=== PATIENT | female | born 1940 | race Caucasian/White ===

== ENCOUNTER 2017-08-04 06:05 | Day surgery (SDC) | payer MEDICARE ==
[~2017-08-04 06:05] MED LIST: AMLO2.5T PO; ASPI81 PO; ATOR40TA28 PO; BENA20 PO; CARV6 PO; CYAN500 PO; DIGO125T PO; FOLI1 PO; GABA-531 PO; MEMA21CA PO; VILA20TA PO; VITAD1000 PO
[2017-08-04] MEDS ORDERED: POVIDONE-IODINE 10% 15 ML SOLUTION UD TP ONE (06:06)
[2017-08-04] MEDS ORDERED: LIDOCAINE HCL/PF 1% 2 ML VIAL IM ONE (06:06)
[2017-08-04] MEDS ORDERED: EPINEPHrine 1:1,000 [1 MG/ML] AMP SQ ONE (06:06)
[2017-08-04] MEDS ORDERED: FentaNYL CITRATE-PF 100 MCG/2 ML VIAL IVP ONE (06:06)
[2017-08-04] MEDS ORDERED: HYALURONATE SOD/CHONDROITIN SOD 0.5 ML VIAL IO ONE (06:06)
[2017-08-04] MEDS ORDERED: LIDOCAINE HCL/PF 2% 5 ML VIAL IM ONE (06:06)
[2017-08-04] MEDS ORDERED: MIDAZOLAM HCL 2 MG/2 ML VIAL IVP ONE (06:06)
[2017-08-04] MEDS ORDERED: HYALURONATE SODIUM 12 MG/ML 0.8 ML SYRINGE IO ONE (06:06)
[2017-08-04] MEDS ORDERED: BRIMONIDINE TARTRATE 0.15% 5 ML OPHTHALMIC SOLUTION OS ONE (06:06)
[2017-08-04] MEDS ORDERED: TETRACAINE HCL VISCOUS 0.5% 5 ML OPHTHALMIC SOLUTION OS ONE (06:06)
[2017-08-04] MEDS ORDERED: DICLOFENAC SODIUM 0.1% 2.5 ML OPHTHALMIC SOLUTION ONE (06:16)
[2017-08-04] MEDS ORDERED: MOXIFLOXACIN HCL 0.5% 3 ML OPHTHALMIC SOLUTION ONE (06:16)
[2017-08-04] MEDS ORDERED: PHENYLEPHRINE HCL 2.5% 2 ML OPHTHALMIC SOLUTION ONE (06:16)
[2017-08-04] MEDS ORDERED: TETRACAINE HCL/PF 0.5% 4 ML OPHTHALMIC SOLUTION ONE (06:16)
[2017-08-04] MEDS ORDERED: CYCLOPENTOLATE HCL 2% 2 ML OPHTHALMIC SOLUTION ONE (06:16)
[2017-08-04] MEDS ORDERED: RINGERS SOLUTION,LACTATED 500 ML IV ONE ×2 (06:17→06:30)
[2017-08-04] MEDS: CYCLOPENTOLATE HCL 2% 2 ML OPHTHALMIC SOLUTION OS SCH ×3 (07:31→08:07)
[2017-08-04] MEDS: DICLOFENAC SODIUM 0.1% 2.5 ML OPHTHALMIC SOLUTION OS SCH ×3 (07:31→08:07)
[2017-08-04] MEDS: MOXIFLOXACIN HCL 0.5% 3 ML OPHTHALMIC SOLUTION OS SCH ×3 (07:31→08:07)
[2017-08-04] MEDS: PHENYLEPHRINE HCL 2.5% 2 ML OPHTHALMIC SOLUTION OS SCH ×3 (07:32→08:07)
[2017-08-04] MEDS ORDERED: AcetaZOLAMIDE 250 MG TABLET ONE (08:55)
[2017-08-04] MEDS ORDERED: AcetaZOLAMIDE 250 MG TABLET PO ONE (09:00)
[2017-08-04] MEDS ORDERED: TETRACAINE HCL/PF 0.5% 4 ML OPHTHALMIC SOLUTION OS ONE (09:00)
[2017-08-04] MEDS ORDERED: ACETAMINOPHEN/CODEINE 300-30 MG TABLET PO PRN (09:00)
== END 2017-08-04 09:40 | disposition home or self-care (01) ==
LOC: SURGERY 06:05
PROVIDERS: ATTEND Ophthalmology
DX: H25.12 Age-related nuclear cataract, left eye (principal); I25.10 Atherosclerotic heart disease of native coronary artery without angina pectoris; G89.29 Other chronic pain; F03.90 Unspecified dementia, unspecified severity, without behavioral disturbance, psychotic disturbance, mood disturbance, and anxiety; E78.00 Pure hypercholesterolemia, unspecified; F32.9 Major depressive disorder, single episode, unspecified; I11.0 Hypertensive heart disease with heart failure; I50.30 Unspecified diastolic (congestive) heart failure; I48.91 Unspecified atrial fibrillation; R41.3 Other amnesia; F10.21 Alcohol dependence, in remission; Z91.040 Latex allergy status; Z95.0 Presence of cardiac pacemaker; Z88.8 Allergy status to other drugs, medicaments and biological substances; Z79.899 Other long term (current) drug therapy; Z79.82 Long term (current) use of aspirin; Z88.1 Allergy status to other antibiotic agents; Z87.891 Personal history of nicotine dependence; Z98.890 Other specified postprocedural states; Z85.3 Personal history of malignant neoplasm of breast; Z90.12 Acquired absence of left breast and nipple
CPT/HCPCS: 66984; 93005; C1780; J0171; J2250; J3010; J3490 ×3; J7120

== ENCOUNTER 2021-09-10 15:35 | Inpatient (IN) | payer MEDICARE, MEDICAID ==
[~2021-09-10] VITALS: Ht 170.2 cm; Wt 48.0 kg
[~2021-09-10 15:35] MED LIST changes: -AMLO2.5T PO; +AMLO2.5T96 PO; +ASPI-1450 PO; -ASPI81 PO; -BENA20 PO; +BENA20TA83 PO; +CHOL100018 PO; -CYAN500 PO; +CYAN500T9 PO; -DIGO125T PO; +DIGO125T84 PO; +FOLI-130 PO; -FOLI1 PO; +GABA-1181 PO; -GABA-531 PO; -VITAD1000 PO
[2021-09-10] MEDS ORDERED: ACETAMINOPHEN 325 MG TABLET PO PRN (18:30)
[2021-09-10] MEDS ORDERED: LORazepam 2 MG/ML VIAL IVP ONE (18:30)
[2021-09-10] MEDS ORDERED: ONDANSETRON HCL 4 MG/2 ML VIAL IVP PRN (18:30)
[2021-09-10 19:17] LABS: BASOPHILS % (AUTO) 0.5 % (0.0-2.0); EOSINOPHILS % (AUTO) 1.5 % (1.0-6.0); HEMATOCRIT 31.7 % (36-46); HEMOGLOBIN 10.5 g/dL (12.0-16.0); LYMPHOCYTES # (AUTO) 0.7 K/uL (1.0-4.8); LYMPHOCYTES % (AUTO) 16.5 % (22.0-44.0); MEAN CORPUSCULAR HEMOGLOBIN 29.2 pg (26.0-34.0); MEAN CORPUSCULAR HGB CONC 33.2 G/dL (31.0-37.0); MEAN CORPUSCULAR VOLUME 88 fL (80-100); MONOCYTES # (AUTO) 0.4 K/uL (0.1-1.0); MONOCYTES % (AUTO) 8.7 % (2.0-9.0); NEUTROPHILS # (AUTO) 3.1 K/uL (1.8-7.7); NEUTROPHILS % (AUTO) 72.8 % (40.0-70.0); PLATELET COUNT (AUTO) 219 K/uL (150-450); RED BLOOD CELL COUNT(AUTO) 3.61 MIL/uL (4.00-5.20); RED CELL DISTRIBUTION WIDTH 21.2 % (11.5-14.5)
[2021-09-10 19:29] LABS: ANION GAP 5 mmol/L (8-16); CALCIUM, TOTAL 8.5 mg/dL (8.8-10.5); CARBON DIOXIDE 32 mmol/L (22-29); CHLORIDE 105 mmol/L (98-107); CREATININE 0.72 mg/dL (0.60-1.30); GLUCOSE,RANDOM 85 mg/dL (70-110); SODIUM SERUM 142 mmol/L (136-145); UREA NITROGEN, BLOOD 17 mg/dL (7-18)
[2021-09-10 19:31] LABS: GLOMERULAR FILTR. RATE CALC > 60 mL/min (>60)
[2021-09-10 19:34] LABS: ALANINE AMINOTRANSFERASE 33 U/L (12-78); ALBUMIN 2.3 g/dL (3.4-5.0); ALKALINE PHOSPHATASE 122 U/L (46-116); ASPARTATE AMINOTRANSFERASE 32 U/L (15-37); BILIRUBIN,TOTAL 0.6 mg/dL (0.1-1.0); TOTAL PROTEIN, SERUM 5.8 g/dL (6.4-8.2)
[2021-09-10 19:35] LABS: INR 1.1 (0.9-1.1); PROTHROMBIN TIME 11.6 SEC (9.4-11.6)
[2021-09-10 20:18] LABS: COVID AG,FIA SOURCE NASOPHARYNGEAL
[2021-09-10] MEDS: DOCUSATE SODIUM 100 MG CAPSULE PO SCH (22:01)
[2021-09-11] MEDS: HEPARIN SODIUM,PORCINE 5,000 UNITS/ML VIAL SQ SCH ×3 (00:08→23:32)
[2021-09-11] MEDS: DOCUSATE SODIUM 100 MG CAPSULE PO SCH ×2 (08:25→20:43)
[2021-09-11] MEDS: PIPERACILLIN/TAZO 3.375 GM/D5W 50 ML IV SCH ×2 (08:26→20:43)
[2021-09-11] MEDS: MORPHINE SULFATE 2 MG/ML SYRINGE IVP PRN ×2 (11:06→22:41)
[2021-09-11] MEDS: LORazepam 2 MG/ML VIAL IVP PRN (12:43)
[2021-09-11 17:22] VITALS: BP 108/65
[2021-09-11 19:00] VITALS: BP 100/51
[2021-09-12] MEDS: PIPERACILLIN/TAZO 3.375 GM/D5W 50 ML IV SCH ×4 (02:35→20:02)
[2021-09-12 04:10] VITALS: BP 109/54
[2021-09-12] MEDS: HEPARIN SODIUM,PORCINE 5,000 UNITS/ML VIAL SQ SCH ×2 (08:00→17:37)
[2021-09-12 08:18] VITALS: BP 116/58
[2021-09-12] MEDS: DOCUSATE SODIUM 100 MG CAPSULE PO SCH ×2 (08:51→20:02)
[2021-09-12] MEDS: MORPHINE SULFATE 2 MG/ML SYRINGE IVP PRN (15:38)
[2021-09-12 16:05] VITALS: BP 106/76
[2021-09-12 19:53] VITALS: BP 105/54
[2021-09-12] MEDS: LORazepam 2 MG/ML VIAL IVP PRN (20:02)
[2021-09-13] MEDS: HEPARIN SODIUM,PORCINE 5,000 UNITS/ML VIAL SQ SCH ×3 (00:20→16:00)
[2021-09-13] MEDS: PIPERACILLIN/TAZO 3.375 GM/D5W 50 ML IV SCH ×4 (03:20→20:05)
[2021-09-13 04:29] VITALS: BP 111/66
[2021-09-13 08:17] VITALS: BP 117/65
[2021-09-13] MEDS: DOCUSATE SODIUM 100 MG CAPSULE PO SCH ×2 (08:47→20:05)
[2021-09-13] MEDS: DEXTROSE 5%-0.45% SODIUM CHL 1,000 ML IV SCH ×2 (11:01→20:05)
[2021-09-13] MEDS ORDERED: BACITRACIN 28 GM OINTMENT TP ONE (13:32)
[2021-09-13] MEDS ORDERED: LIDOCAINE 1%/EPI 1:200,000/PF 30 ML VIAL ONE (13:33)
[2021-09-13] MEDS ORDERED: BUPIVACAINE HCL/PF 0.5% 30 ML VIAL ONE (13:33)
[2021-09-13] MEDS ORDERED: CHOL-35 PO (13:50)
[2021-09-13] MEDS ORDERED: RINGERS SOLUTION,LACTATED 1,000 ML IV SCH (14:00)
[2021-09-13] MEDS ORDERED: BUPIVACAINE LIPOSOME/PF 1.3%-13.3MG/ML SUSPENSION 20 ML VIAL INJ ONE (16:00)
[2021-09-13] MEDS ORDERED: RINGERS SOLUTION,LACTATED 1,000 ML IV ONE (16:27)
[2021-09-13 16:52] LABS: BASOPHILS % (AUTO) 0.8 % (0.0-2.0); EOSINOPHILS % (AUTO) 0.3 % (1.0-6.0); HEMATOCRIT 33.6 % (36-46); HEMOGLOBIN 11.1 g/dL (12.0-16.0); LYMPHOCYTES # (AUTO) 0.9 K/uL (1.0-4.8); LYMPHOCYTES % (AUTO) 28.3 % (22.0-44.0); MEAN CORPUSCULAR HEMOGLOBIN 29.1 pg (26.0-34.0); MEAN CORPUSCULAR HGB CONC 32.9 G/dL (31.0-37.0); MEAN CORPUSCULAR VOLUME 88 fL (80-100); MONOCYTES # (AUTO) 0.4 K/uL (0.1-1.0); MONOCYTES % (AUTO) 11.8 % (2.0-9.0); NEUTROPHILS # (AUTO) 1.9 K/uL (1.8-7.7); NEUTROPHILS % (AUTO) 58.8 % (40.0-70.0); PLATELET COUNT (AUTO) 216 K/uL (150-450); RED BLOOD CELL COUNT(AUTO) 3.81 MIL/uL (4.00-5.20); RED CELL DISTRIBUTION WIDTH 20.7 % (11.5-14.5)
[2021-09-13 18:36] LABS: CALCIUM, TOTAL 8.2 mg/dL (8.8-10.5); CREATININE 1.04 mg/dL (0.60-1.30); POTASSIUM 3.7 mmol/L (3.5-5.1)
[2021-09-13 18:41] LABS: BILIRUBIN,TOTAL 0.8 mg/dL (0.1-1.0); TOTAL PROTEIN, SERUM 5.6 g/dL (6.4-8.2)
[2021-09-13 19:25] VITALS: BP 121/65
[2021-09-13] MEDS: MORPHINE SULFATE 2 MG/ML SYRINGE IVP PRN ×2 (20:06→23:18)
[2021-09-14] MEDS: HEPARIN SODIUM,PORCINE 5,000 UNITS/ML VIAL SQ SCH ×2 (00:11→08:11)
[2021-09-14] MEDS: PIPERACILLIN/TAZO 3.375 GM/D5W 50 ML IV SCH ×2 (02:13→08:11)
[2021-09-14] MEDS: DOCUSATE SODIUM 100 MG CAPSULE PO SCH (08:12)
[2021-09-14 08:15] VITALS: BP 111/61
[2021-09-14] MEDS ORDERED: PNEUMOCOCCAL VACCINE POLYVALENT 0.5 ML VIAL [PPSV23] IM. ONE (09:30)
[2021-09-14] MEDS ORDERED: ACET325S20 PR (11:18)
[2021-09-14] MEDS ORDERED: LORA10TA7 PO (11:18)
[2021-09-14] MEDS ORDERED: IPRA4AER IH (11:18)
[2021-09-14] MEDS ORDERED: FURO20 PO (11:18)
[2021-09-14] MEDS ORDERED: BISA10SU11 PR (11:18)
[2021-09-14] MEDS ORDERED: ONDA-104 PO (11:18)
[2021-09-14] MEDS ORDERED: SACU1TAB PO (11:18)
[2021-09-14] MEDS ORDERED: DOCU100C34 PO (11:18)
[2021-09-14] MEDS ORDERED: MULT-1192 PO (11:18)
[2021-09-14] MEDS ORDERED: BENZ-70 PO (11:18)
[2021-09-14] MEDS ORDERED: LIDO1ADH72 TP (11:18)
[2021-09-14] MEDS ORDERED: MEMA28CA16 PF (11:18)
[2021-09-14] MEDS ORDERED: VORT20TA PO (11:18)
[2021-09-14] MEDS ORDERED: FLUT1AER IH (11:18)
[2021-09-14] MEDS ORDERED: ALBU8HFA IH (11:18)
[2021-09-14] MEDS ORDERED: FAMO20 PO (11:18)
[2021-09-14] MEDS ORDERED: POTA8TAB71 PO (11:18)
[2021-09-14] MEDS ORDERED: FE PR (11:18)
[2021-09-14] MEDS ORDERED: GUAIF10 PO (11:18)
[2021-09-14] MEDS ORDERED: MOM30 PO (11:18)
[2021-09-14] MEDS ORDERED: DICL100G51 TP (11:18)
[2021-09-14] MEDS ORDERED: AMOX1TAB16 PO (12:00)
[2021-09-14] MEDS ORDERED: ENOX30DI5 SQ (12:00)
== END 2021-09-14 16:00 | DRG 963 ==
LOC: EMS 15:54 → 6N 09-11 16:01 → 6S 09-11 16:58
PROVIDERS: ADMIT Internal Medicine; ATTEND Internal Medicine
DX: S72.012A Unspecified intracapsular fracture of left femur, initial encounter for closed fracture (principal); E43 Unspecified severe protein-calorie malnutrition; S32.592A Other specified fracture of left pubis, initial encounter for closed fracture; I50.23 Acute on chronic systolic (congestive) heart failure; I42.9 Cardiomyopathy, unspecified; Z68.1 Body mass index [BMI] 19.9 or less, adult; F03.90 Unspecified dementia, unspecified severity, without behavioral disturbance, psychotic disturbance, mood disturbance, and anxiety; E78.5 Hyperlipidemia, unspecified; Z66 Do not resuscitate; E78.00 Pure hypercholesterolemia, unspecified; G89.29 Other chronic pain; Z20.822 Contact with and (suspected) exposure to COVID-19; K21.9 Gastro-esophageal reflux disease without esophagitis; W18.39XA Other fall on same level, initial encounter; I11.0 Hypertensive heart disease with heart failure; M19.90 Unspecified osteoarthritis, unspecified site; I35.0 Nonrheumatic aortic (valve) stenosis; Z51.5 Encounter for palliative care; Z88.8 Allergy status to other drugs, medicaments and biological substances; Z79.82 Long term (current) use of aspirin; Z79.899 Other long term (current) drug therapy; Z95.0 Presence of cardiac pacemaker; Y93.89 Activity, other specified; Y92.89 Other specified places as the place of occurrence of the external cause; Y99.8 Other external cause status
CPT/HCPCS: 70450; 71045; 72125; 73503; 73552; 80053; 84484; 85025; 85610; 87081; 93005; 93306; 99285; C9290; J1644; J2060; J2270; J2405; J2543; J3490; J7120; 36415-L1; 36415-TC; U0003